=== PATIENT | female | born 1995 | race Caucasian/White ===

== ENCOUNTER 2016-12-25 12:27 | Emergency (ER) | payer OTHER ==
[~2016-12-25] VITALS: Ht 166.6 cm; Wt 104.5 kg
[~2016-12-25 12:27] MED LIST: Ascorbic Acid PO; DOCU-41 PO; FERR-74 PO; Hydrocodone/Acetaminophen PO; IBUP800T28 PO; PREN-100 PO
[2016-12-25 12:35] VITALS: BP 133/88; PULSE 79; RESP 16; O2SAT 97
[2016-12-25 13:10] VITALS: BP 130/74; PULSE 75; RESP 17; O2SAT 96
[2016-12-25 13:38] LABS: BASOPHILS % (AUTO) 0.1 % (0-3); EOSINOPHILS % (AUTO) 0.4 % (0-5); MONOCYTES % (AUTO) 6.5 % (4-12); Mean Corpuscular Hemoglobin 28.5 pg (27.0-35.0); Mean Corpuscular Volume 87.3 fL (81-100); NEUTROPHILS % (AUTO) 78.1 % (40-74); Platelet Count 220 bil/L (150-400)
[2016-12-25 13:55] LABS: TROPONIN T < 0.010 ug/L (0.0-0.011)
--- NOTE | 2016-12-25 14:34 | ED.REPORT ---
HPI-General Illness Date of Service Dec 25, 2016 ED Provider: Rory Otero MD Pt is a generally healthy 21 y/o female presenting to the ED c/o nausea and vomiting onset 3 days ago. For the past 3 days she has been experiencing worsening nausea and vomiting and today she noticed a small amount of blood in her emesis. While on the way to the ED she experienced an episode of chest pain which quickly resolved and has no returned. Pt denies SOB, abdominal pain, fever , chills, bloody stools, melena. She has a history of endometriosis and is concerned that her pain may be related to that. Nursing Notes Stated Complaint: CHEST PAIN Chief Complaint: Chest Pain-Non Cardiac Nature Nursing Notes Reviewed: Yes Allergies: Coded Allergies: coconut oil (Verified Allergy, Intermediate, 07/02/15) ketorolac (Verified Allergy, Unknown, 01/06/15) Scheduled ([Ascorbic Acid]) 500 MG TABLET 500 MG PO BIDWM Docusate Sodium (Colace) 100 Mg Capsule 100 MG PO BID Ferrous Sulfate (Feosol) 325 Mg Tablet 325 MG PO BIDWM Vits #90/Iron Fum/FA ( Formula Tablet) 1 Each Tablet 1 EACH PO DAILY Scheduled PRN ([Hydrocodone/Acetaminophen]) 1 TABLET TABLET 1-2 TABLET PO Q4H PRN PRN For Pain Ibuprofen (Ibuprofen) 800 Mg Tablet 800 MG PO Q6H PRN PRN For Pain Ondansetron ODT (Ondansetron ODT) 4 Mg Tab.rapdis 4 MG PO Q8H PRN PRN For Nausea General Time Seen by MD: 16:37 Chief Complaint Vomiting Hx Obtained From: Patient Arrived By: Walk-in Sudden in Onset?: Yes Onset Occurred: 5 - 8 hours ago Symptom Duration: Since onset Location: : Chest Quality: Painful Severity: Current: No pain currently Severity: Maximum: Moderate Similar Sx Previous: No Past Medical History Past Medical History endometriosis asthma, uses albuterol PRN Pelvic Adhesive Disease Paratubal cysts Chronic Pelvic Pain Past Surgical History Laparoscopy for endometriosis Family History Father had DVT shortly after having leg amputation. 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 Physical Exam Constitutional: Well-developed, well-nourished. Not diaphoretic. Well- appearing. NAD. Head: Normocephalic and atraumatic. Mouth/Throat: Oropharynx is clear and moist. No oropharyngeal exudate. Eyes: EOM are normal. Pupils are equal, round, and reactive to light. Neck: Supple, no tracheal deviation. Cardiovascular: Normal rate, regular rhythm. Equal and intact distal pulses throughout. Pulmonary/Chest: Effort normal and breath sounds normal. No respiratory distress. Reproducible left anterior chest wall pain. Abdominal: Soft. No distension. There is no tenderness, rebound, or guarding. Musculoskeletal: Range of motion grossly intact, moving all extremities. No edema or tenderness appreciated. Neurological: AOx3. Grossly nonfocal exam. Strength and sensation intact and equal to bilateral upper and lower extremities. Skin: Warm and dry, no rashes or pallor appreciated. Psychiatric: Appropriate mood and affect. Behavior appears normal. Vital Signs Vital Signs Date Time Temp Pulse Resp B/P Pulse Ox O2 Delivery O2 Flow Rate FiO2 12/25/16 18:05 87 18 139/87 99 12/25/16 17:28 80 15 131/72 99 Room Air 12/25/16 13:10 75 17 130/74 96 Room Air 12/25/16 12:35 37.7 79 16 133/88 97 Room Air Initial VS: Reviewed Interpretation & Diagnostics Lab Results Interpretation Result Diagram: 12/25/16 1310 12/25/16 1310 Test 12/25/16 13:10 12/25/16 13:56 White Blood Count 7.3th/mm3 (3.8-10.1) Red Blood Count 4.88mil/mm3 (3.90-5.20) Hemoglobin 13.9g/dL (12.0-15.6) Hematocrit 42.6% (35.0-46.0) Mean Corpuscular Volume 87.3fL (81-100) Mean Corpuscular Hemoglobin 28.5pg (27.0-35.0) Mean Corpuscular Hemoglobin Concent 32.6% (32.0-37.0) Red Cell Distribution Width 13.7% (12.3-15.4) Platelet Count 220bil/L (150-400) Neutrophils (%) (Auto) 78.1% (40-74) Lymphocytes (%) (Auto) 14.8% (14-46) Monocytes (%) (Auto) 6.5% (4-12) Eosinophils (%) (Auto) 0.4% (0-5) Basophils (%) (Auto) 0.1% (0-3) Sodium Level 138mEq/L (134-144) Potassium Level 3.9mEq/L (3.5-5.2) Chloride Level 102mEq/L (97-108) Carbon Dioxide Level 21mmol/L (18-29) Blood Urea Nitrogen 8mg/dL (6-20) Creatinine 0.70mg/dL (0.57-1.00) Estimat Glomerular Filtration Rate 150mL/min (>59) Glucose Level 92mg/dL (60-99) Calcium Level 9.4mg/dL (8.5-10.1) Magnesium Level 2.0mg/dL (1.6-2.6) Total Bilirubin 0.4mg/dL (0.0-1.2) Aspartate Amino Transf (AST/SGOT) 20U/L (0-50) Alanine Aminotransferase (ALT/SGPT) 17U/L (0-32) Alkaline Phosphatase 108U/L (25-150) Troponin T < 0.010ug/L (0.0-0.011) Total Protein 8.0g/dL (6.4-8.4) Albumin 4.7g/dL (3.4-5.0) Hold Rahman Top Tube Received (Received) Hold Urine Received (Received) ECG Interpretation ECG Interpretation: Sinus rhythm rate 78 Time: 14:55 Interpreted by: ED physician Normal ECG Interpretation: No acute ischemic changes X-Ray Chest Interpretation Chest Xray Interpretation: IMPRESSION: No acute cardiopulmonary findings. Dictated by: Jenny Harkins M.D. on 12/25/2016 at 17:41 Approved by: Jenny Harkins M.D. on 12/25/2016 at 17:41 View: Portable, AP & lat Interpretation / Wet Read by: Interpret - Radiologist Re-Eval/Medical Decision Med Decision/Clinical Course In summary, 21-year-old female presenting to the ED for evaluation of nausea and vomiting over the past several days, now today with a small amount of blood in it. She has not had any abdominal pain, and has no abdominal tenderness to palpation whatsoever. Chest x-ray negative. She had a brief episode of chest pain, however is low risk by HEART score, pain has resolved and she states that the chest wall tenderness is the exact pain that she has had previously. EKG demonstrates sinus rhythm with no acute ischemic changes. CBC and CMP grossly within normal limits. Troponin negative. I discussed with the patient that it is possible that because she has been having vomiting for several days, there may be a very small amount of blood in the vomit from this from the retching, and that she can follow up on this as an outpatient in the next several days. She is now tolerating by mouth without difficulty, eating and drinking. I discussed with her that I do not think we need to perform any imaging at this time given her lack of tenderness or pain, improvement in symptoms, but that she should follow-up with her primary doctor. Very careful return precautions provided. Patient agreeable with the plan for discharge as stated, no further questions. Source of Hx: Old records Time of Eval: 16:46 Re-Evaluation/Progress Note: Pt rechecked. Informed pt of plan for discharge. Pt understands and agrees with plan for discharge. F/U instructions and RTER warnings given. All questions addressed. Counseled Regarding: Diagnosis, Lab results, Need for follow-up, When/why to return to ED Discharge & Departure Primary Impression: Nausea and vomiting Vomiting type: unspecified Vomiting Intractability: non-intractable Qualified Code: R11.2 - Nausea with vomiting, unspecified Additional Impression: Chest pain Chest pain type: unspecified Qualified Code: R07.9 - Chest pain, unspecified Disposition: Home Discharge Condition All VS Reviewed: Yes Condition: Stable Patient Instructions: Acute Nausea and Vomiting (ED), Chest Pain (ED) Additional Instructions: Thank you for allowing us to be a part of your care in the ED today. Your emergency department results, including labs including markers for heart muscle damage, chest x-ray, and EKG are reassuring. I do not think that there is an emergent cause for your symptoms today that would require admission to the hospital; however, a clear cause of your symptoms was not identified. Please schedule a follow up appointment with your primary care physician tomorrow for a recheck. Please return to the emergency department for any new or worsening symptoms including any worsening chest pain, vomiting blood, abdominal pain, shortness of breath, one sided weakness/numbness, fevers, or chills, or if there's anything else of concern to you. Referrals: Tutu Blackburn MD (PCP) Scribe Attestation Portions of this note were transcribed by Brett Britton. I, Dr. Otero, personally performed the history, physical exam and medical decision-making; I reviewed and confirmed the accuracy of the information in the transcribed note. copies to: Tutu Blackburn MD Risk Factors )( CAD Risk Stratification No risk factors )( PE Risk Stratification No risk factors HEART Score HEART for MACE: Low index of susp (0), Normal ECG (0), Age under 45 (0), No risk factors known (0), < or = to NL troponin (0) HEART for MACE Score: 0-3 (low risk 0.9%-1.7%) Rory Otero MD Dec 25, 2016 14:34 BRETT BRITTON Dec 25, 2016 14:57
[2016-12-25] MEDS ORDERED: Ondansetron 2 mg/mL 2 mL Inj ONE (15:06)
[2016-12-25] MEDS ORDERED: ONDA4TAB12 PO (17:07)
[2016-12-25 17:28] VITALS: BP 131/72; PULSE 80; RESP 15; O2SAT 99
--- NOTE | 2016-12-25 17:43 | DRSVH ---
PROCEDURE: X-RAY CHEST, TWO VIEWS ([id number]) INDICATIONS: nausea, vomiting, chest wall pain TECHNIQUE: 2 views of the chest were acquired. COMPARISON: None. FINDINGS: Surgical changes and devices: None. Lungs and pleura: No pleural effusions or pneumothorax. Lungs are clear. Mediastinum: Mediastinal contours are normal. Heart size is normal. Bones and chest wall: No suspicious bony abnormalities. Soft tissues appear unremarkable. IMPRESSION: No acute cardiopulmonary findings. Dictated by: Jenny Harkins M.D. on 12/25/2016 at 17:41 Approved by: Jenny Harkins M.D. on 12/25/2016 at 17:41
[2016-12-25 18:05] VITALS: BP 139/87; PULSE 87; RESP 18; O2SAT 99
== END 2016-12-25 18:18 | disposition home or self-care (01) ==
LOC: SED 12:27
DX: R07.9 Chest pain, unspecified (principal); R11.2 Nausea with vomiting, unspecified; Z87.891 Personal history of nicotine dependence; Z88.8 Allergy status to other drugs, medicaments and biological substances
CPT/HCPCS: 36415; 71020; 80053; 81025; 82948; 83735; 84484; 85025; 93005; 96374; 99285; J2405